=== PATIENT | female | born 1990 | race Two or more races ===

== ENCOUNTER 2018-06-17 21:27 | Emergency (ER) | payer MEDICAID, OTHER ==
[~2018-06-17] VITALS: Ht 167.6 cm; Wt 90.7 kg
[2018-06-17 21:46] VITALS: BP 145/95
[2018-06-17 22:09] LABS: Urine Bacteria NONE SEEN /hpf (None Seen); Urine Blood Negative /uL (Negative); Urine Specific Gravity 1.008 (1.001-1.035); Urine WBC 1 /hpf (0 - 5)
[2018-06-17] MEDS ORDERED: ONDANSETRON ODT 4 MG TAB PO ONE ×2 (23:30→23:45)
[2018-06-17] MEDS ORDERED: KETOROLAC TROMETH 60MG/2ML VIAL IM ONE ×2 (23:30→23:45)
== END 2018-06-18 00:24 | disposition home or self-care (01) ==
LOC: ER 21:27 → EDSEX 21:27 → ER 06-18 00:24
DX: R51 Headache (principal); E66.01 Morbid (severe) obesity due to excess calories; Z68.32 Body mass index [BMI] 32.0-32.9, adult
CPT/HCPCS: 70450; 81001; 96372; 99285; J1885; Q0162